=== PATIENT | male | born 1950 | race Caucasian/White ===

== ENCOUNTER 2021-01-05 06:50 | Outpatient (REF) | payer MEDICARE, SELFPAY ==
[2021-01-05 11:27] LABS: MANUAL DIFF FLAG NO
[2021-01-05 11:44] LABS: Basophils Percent Auto 0.5 % (0-2); Eosinophils Absolute Auto 0.4 X10*3/uL (0.0-0.4); Eosinophils Percent Auto 6.7 % (0-4); Hematocrit 40.9 % (42-52); Hemoglobin 13.9 g/dl (14.0-18.0); Imm Gran Abs Auto 0.01 X10*3/uL (0.00-0.03); Imm Gran Pct Auto 0.2 % (0.0-0.4); Lymphocytes Absolute Auto 1.9 X10*3/uL (1.2-4.9); Lymphocytes Percent Auto 28.6 % (20-40); Mean Platelet Volume 10.9 fL (9.4-12.4); Monocytes Absolute Auto 0.7 X10*3/uL (0.1-1.2); Neutrophils Absolute Auto 3.6 X10*3/uL (2.0-8.3); Platelet Count 188 X10*3/uL (160-400); Red Blood Count 4.35 X10*6/uL (4.60-5.80); Red Cell Distribution Width 12.3 % (11.0-16.0); White Blood Count 6.6 X10*3/uL (4.8-10.8)
[2021-01-05 11:48] LABS: Estimated Average Glucose 160 mg/dL; Hemoglobin A1c % 7.2 %
[2021-01-05 12:02] LABS: Creatinine Urine 202.91 mg/dL; Microalbum/Creatinine Ratio Ur 17.7 ug/mg cr
[2021-01-05 12:26] LABS: Alanine Aminotransferase 30 U/L (0-40); Alkaline Phosphatase 50 U/L (39-117); Anion Gap 13 (12-20); Aspartate Amino Transferase 21 U/L (5-37); Bilirubin Total 0.7 mg/dL (0.0-1.0); Blood Urea Nitrogen 21 mg/dL (9-16); Calcium 8.7 mg/dL (8.4-10.2); Carbon Dioxide 26 mmol/L (22-29); Chloride 105 mmol/L (96-108); Cholesterol 153 mg/dL; Estimated Glomerular Filt Rate 58; Glucose Fasting 138 mg/dL (60-99); HDL Cholesterol 32 mg/dL; LDL Cholesterol Calculated 93 mg/dl; Potassium 4.2 mmol/L (3.3-5.1); Sodium 140 mmol/L (135-145); Total Protein 7.2 g/dL (6.5-8.0); Triglycerides 144 mg/dL
[2021-01-05 12:46] LABS: Prostate Specific Antigen 1.41 ng/mL (<0.05-4.0)
== END 2021-01-05 06:51 | disposition home or self-care (01) ==
LOC: HO.HMGCLDS 06:50
PROVIDERS: PCP Internal Medicine; Visit Provider Internal Medicine
DX: Z12.5 Encounter for screening for malignant neoplasm of prostate (principal); E11.9 Type 2 diabetes mellitus without complications; E78.00 Pure hypercholesterolemia, unspecified; I10 Essential (primary) hypertension; M19.90 Unspecified osteoarthritis, unspecified site
CPT/HCPCS: 36415; 80053; 80061; 82043; 83036; 84153; 85025

== ENCOUNTER 2021-04-28 10:04 | Outpatient (REF) | payer MEDICARE, SELFPAY ==
--- NOTE | ~2021-04-28 | XR_ITS ---
EXAMINATION: XR CHEST CLINICAL INFORMATION: Cough. Rule out bronchitis. COMPARISON: None TECHNIQUE: 2 views of the chest were obtained. FINDINGS: The cardiac silhouette is slightly enlarged. The thoracic aorta is calcified and tortuous may be ectatic. Hilar and mediastinal contours are otherwise unremarkable. The lungs are clear. There is no evidence of a pneumonia. There is no pleural effusion or pneumothorax. There are degenerative changes of the spine. XR/XR chest 2V IMPRESSION: Slightly enlarged cardiac silhouette. Slightly tortuous question ectatic thoracic aorta. No evidence of pneumonia.
== END 2021-04-28 10:05 | disposition home or self-care (01) ==
LOC: HO.XRAY 10:04
PROVIDERS: PCP Internal Medicine; Visit Provider Internal Medicine
DX: R05.9 Cough, unspecified (principal); Z87.09 Personal history of other diseases of the respiratory system
CPT/HCPCS: 71046